=== PATIENT | female | born 1995 | race Caucasian/White ===

== ENCOUNTER → 2017-10-18 | Outpatient (CLI) | payer BC ==
[~2017-10-18] MED LIST: BCPILLS PO; CETI10TA84 PO; CYCL5TAB PO; MONT1TAB3 PO; ONDA8TAB62 SL; VENL1CAP92 PO
[2017-10-18 17:54] LABS: HEP C IGG 13 YRS+OLDER_RFLX NEG (NEG)
== END | disposition home or self-care (01) ==
LOC: C.LAB1850 15:15
PROVIDERS: ATTEND Obstetrics & Gynecology
DX: Z11.3 Encounter for screening for infections with a predominantly sexual mode of transmission (principal); N91.2 Amenorrhea, unspecified

== ENCOUNTER → 2017-11-12 | Outpatient (CLI) | payer BC ==
--- NOTE | 2017-11-12 14:37 | DIAGNOSTIC IMAGING REPORT ---
R HAND MIN 3 VIEWS ROUTINE HISTORY: 22 years-old Female BITTEN BY DOG, INITIAL ENCOUNTER W54.0XXA acute right hand pain status post dog bite COMPARISON: None available TECHNIQUE: 3 views of the right hand FINDINGS: No acute fracture, dislocation, significant degenerative changes or opaque foreign body. IMPRESSION: No acute fracture or opaque foreign body. The above report was generated using voice recognition software. It may contain grammatical, syntax or spelling errors. Electronically signed by: oJse Al M.D. 11/12/2017 2:35 PM Dictated Date/Time: 11/12/2017 2:28 PM
== END | disposition home or self-care (01) ==
LOC: C.RADBC 14:13
PROVIDERS: ATTEND Student in an Organized Health Care Education/Training Program
DX: S60.571A Other superficial bite of hand of right hand, initial encounter (principal); W54.0XXA Bitten by dog, initial encounter